=== PATIENT | female | born 1945 | race Caucasian/White ===

== ENCOUNTER 2020-03-02 13:40 | Outpatient (CLI) | payer MEDICARE, SELFPAY ==
--- NOTE | 2020-03-02 13:58 | MM_ITS ---
WS: [id number] SCREENING DIGITAL MAMMOGRAM WITH CAD HISTORY: SCREEN COMPARISON: 11/19/2007 Bilateral CC and MLO views submitted. Computer aided detection analyzed. Breast composition: There are scattered areas of fibroglandular density. No suspicious masses, microc alcifications or architectural distortion. Benign calcifications in each breast. Stable lymph node up per outer quadrant RIGHT breast. MM/[place] [id number] IMPRESSION: BI-RADS: 2-Benign FOLLOW UP: 1 Year Follow-up
--- NOTE | 2020-03-02 14:43 | XR_ITS ---
WS: [id number] SCREENING DEXA SCAN [employer] CLINICAL INFORMATION: POSTMENOPAUSAL COMPARISON: None. FINDINGS: The L1-L4 bone mineral density measures 1.446 g/cm2. This corresponds to a T score score of 2.2 and Z score of 3.6. Left femoral neck bone mineral density measures 0.819 g/cm2. This corresponds to a T score of -1.5 an d Z score of 0.1. Right femoral neck bone mineral density measures 0.837 g/cm2. This corresponds to a T score -1.4of an d Z score of 0.2. Mean femoral neck bone mineral density measures 0.828 g/cm2. This corresponds to a T score of -1.4 an d Z score of 0.1. XR/XR DEXA axial skeleton* [id number] IMPRESSION: Osteopenia in the femoral necks. Normal bone mineralization lumbar spine, altho ugh values are likely elevated due to endplate sclerosis Patient's FRAX calculated 10 year probability for major osteoporotic fracture i s 24.5 % and osteoporotic hip fracture is 14.7%.
== END 2020-03-02 13:41 | disposition home or self-care (01) ==
LOC: RADSHAW 13:54
PROVIDERS: PCP Family Medicine; Visit Provider Family Medicine
DX: Z12.31 Encounter for screening mammogram for malignant neoplasm of breast (principal); Z78.0 Asymptomatic menopausal state
CPT/HCPCS: 77067; 77080

== ENCOUNTER 2021-12-20 08:03 | Outpatient (CLI) | payer MEDICARE, SELFPAY ==
--- NOTE | 2021-12-20 08:20 | XRR_ITS ---
PROCEDURE INFORMATION: Exam: XR Chest Exam date and time: 12/20/2021 8:21 AM Age: 76 years old Clinical indication: Dyspnea; Prior surgery; Surgery type: Hysterotomy; Patient HX: SOB, cough, spitting up clear liquid; Additional info: Dyspnea/fatigue/gout/htn TECHNIQUE: Imaging protocol: Radiologic exam of the chest. Views: 2 views. COMPARISON: CT abdomen pelvis w con* [id number] 06/01/2016 1:55 PM FINDINGS: Lungs: Unremarkable. No consolidation. Pleural spaces: Unremarkable. No pleural effusion. No pneumothorax. Heart/Mediastinum: Upper normal or borderline cardiac enlargement. Vasculature: Calcified thoracic aorta. Bones/joints: Degenerative changes of thoracic spine. Osteopenia. Other findings: Likely few scattered calcified granulomata. XR/XR chest 2V* [id number] IMPRESSION: No acute cardiopulmonary process.
== END 2021-12-20 08:04 | disposition home or self-care (01) ==
PROVIDERS: PCP Family Medicine; Visit Provider Family Medicine
DX: R06.02 Shortness of breath (principal); R53.83 Other fatigue; M10.9 Gout, unspecified; E78.5 Hyperlipidemia, unspecified; I10 Essential (primary) hypertension
CPT/HCPCS: 71046; 80053; 80061; 83880; 84443; 85025; 85651; 86141

== ENCOUNTER → 2022-07-04 10:37 | Outpatient (BNVA) | payer MEDICARE, SELFPAY | PROVIDERS: PCP Family Medicine; Visit Provider Family Medicine | DX: R73.9 Hyperglycemia, unspecified (principal); F32.A Depression, unspecified; R53.83 Other fatigue | CPT/HCPCS: 80048; 83036; 85025 ==

== ENCOUNTER 2023-02-07 08:49 | Outpatient (CLI) | payer MEDICARE, SELFPAY ==
--- NOTE | 2023-02-07 09:17 | XR_ITS ---
WS: [id number] EXAMINATION: XR shoulder LT min 2V* [id number] REASON FOR EXAM: left shoulder pain COMPARISON: None available. ORDER DATE: 02/07/2023 9:40 AM TECHNIQUE: 3 views of the left shoulder were obtained. X-RAY FINDINGS: No fractures or dislocations. Normal motion of the shoulder with internal/external rotation. Moderate glenohumeral and acromioclavicular joint degenerative changes. Acromioclavicular joint appears unremarkable. Limited visualization of the adjacent hemithorax is unremarkable. IMPRESSION: No fractures or dislocations of the left shoulder with moderate osteoarthritic changes..
[2023-02-07 09:59] LABS: Basophils # 0.1 10^3/uL (0.0-0.1); Basophils % 0.9 %; Eosinophils # 0.3 10^3/uL (0.0-0.8); Eosinophils % 2.5 %; Hematocrit 37.7 % (36-47); Lymphocytes # 3.9 10^3/uL (0.8-4.8); Lymphocytes % 35.9 %; Mean Corpuscular HGB Conc 32.4 g/dL (30-55); Mean Corpuscular Hemoglobin 31.9 pg (27-33); Mean Corpuscular Volume 98.4 fl (85-98); Mean Platelet Volume 10.6 fL (7.4-10.4); Monocytes # 0.6 10^3/uL (0.2-0.9); Monocytes % 5.7 %; Neutrophils % 54.5 %; Nucleated Red Blood Cells % 0 %; Platelet Count 245 10^3/cmm (157-399); Red Blood Count 3.83 10^6/uL (3.85-5.65); Red Cell Distribution Width 13.2 % (12.1-15.1); White Blood Count 10.82 10^3/uL (3.29-11.43)
[2023-02-07 10:22] LABS: Alanine Aminotransferase 12 U/L (0-33); Albumin Level 4.1 g/dL (3.5-5.2); Alkaline Phosphatase 102 U/L (35-105); Anion Gap 15.4 (5-19); Aspartate Amino Transferase 16 U/L (0-32); Blood Urea Nitrogen 21 mg/dL (8-23); Calcium 9.7 mg/dL (8.5-10.5); Carbon Dioxide 25 mmol/L (22-29); Chloride 103 mmol/L (98-107); Chol HDL Ratio 4.04 mg/dL (0.0-4.40); Cholesterol 186 mg/dL (0-200); Globulin 3.4 g/dL (1.3-4.6); Glucose 128 mg/dL (65-115); HDL Cholesterol 46 mg/dL (60-100); LDL Cholesterol Calculated 110 mg/dL (50-129); LDL HDL Ratio 2.39 RATIO (0.00-3.22); Osmolality Calculated 295 mOsm/kg (285-295); Potassium 3.4 mmol/L (3.5-5.1); Sodium 140 mmol/L (136-145); Total Bilirubin 0.3 mg/dL (0.15-1.2); Total Protein 7.5 g/dL (6.6-8.7); Triglycerides 150 mg/dL (0-150)
== END 2023-02-07 08:50 | disposition home or self-care (01) ==
PROVIDERS: PCP Family Medicine; Visit Provider Family Medicine
DX: R73.9 Hyperglycemia, unspecified; I10 Essential (primary) hypertension; R53.83 Other fatigue; M19.012 Primary osteoarthritis, left shoulder
CPT/HCPCS: 36415; 73030; 80053; 80061; 85025

== ENCOUNTER → 2023-06-07 13:15 | Outpatient (BNVA) | payer MEDICARE, SELFPAY | PROVIDERS: PCP Family Medicine; Visit Provider Family Medicine | DX: R53.83 Other fatigue (principal) | CPT/HCPCS: 80048; 85025 ==

== ENCOUNTER 2023-07-03 12:51 | Observation (INO) | payer MEDICARE, SELFPAY ==
--- NOTE | 2023-06-29 13:35 | P.ANESASSM_ITS ---
Pre-Anesthetic Assessment Height/Weight: Height 1.57 m Operation Date: 07/03/23 09:30 Proposed Procedures p Anterior colporrhaphy ,augmented with allograft,posterior colporrhaphy 05855, sling 02210, Sacrospinous fixation 57619,N81.10,,N81.6,N99.3(Not Applicable) - MD janina Lamar Posterior Repair(Not Applicable) - MD janina Lamar Sling(Not Applicable) - Jonathan Aguila MD s Sacrospinous Ligament Suspension Sacrospinous Fixation(Not Applicable) - Jonathan Aguila MD Social No alcohol and No tobacco Exam alert, oriented x 3, clear to auscultation bilaterally and regular rate & rhythm Airway Submandibular: Other (limited/receeding) Cervical ROM: within normal limits Mallampati: Class III Pulmonary Sleep Apnea Metabolic Diabetes Mellitus Musc/skel Osteoarthritis/DJD and Weakness Neuropsych Depression Anesthetic Plan ASA status: 3 Anesthesia: General Medications/Allergies Home Medications Medication Instructions Recorded Confirmed Last Taken Type allopurinol 300 mg tablet 300 mg PO DAILY 06/29/23 06/29/23 06/28/23 History amlodipine 5 mg tablet 5 mg PO DAILY 06/29/23 06/29/23 06/28/23 History cartilage 40 mg-collagen II 10 1 tab PO DAILY 06/29/23 06/29/23 06/28/23 History mg-boron 5 mg-hyaluronate 3.3 mg tablet ([employer]) cholecalciferol (vitamin D3) 25 25 mcg PO DAILY 06/29/23 06/29/23 06/28/23 History mcg (1,000 unit) tablet (Vitamin D3) docusate sodium 100 mg tablet 100 mg PO DAILY 06/29/23 06/29/23 06/28/23 History (Stool Softener) lisinopril 20 1 tab PO DAILY 06/29/23 06/29/23 06/28/23 History mg-hydrochlorothiazide 25 mg tablet magnesium chloride 64 mg 64 mg PO DAILY 06/29/23 06/29/23 06/28/23 History tablet,extended release metoprolol succinate 50 mg 50 mg PO DAILY 06/29/23 06/29/23 06/28/23 History tablet,extended release 24 hr sour mcfadden extract 1,000 mg 2,400 mg PO DAILY 06/29/23 06/29/2324 History capsule (Tart Mcfadden Extract) Allergies Allergy/AdvReac Type Severity Reaction Status Date / Time codeine AdvReac Intermediate Unknown Verified 06/29/23 07:47 diazepam [From Valium] AdvReac Intermediate Unknown Verified 06/29/23 07:47 [facility] Anesthesia Medical History Osteoarthritis GIFTY on CPAP Depression Data Anesthesia Cardiac Studies: No Data to Display
[2023-07-03] VITALS (23 sets, daily range): BP systolic 122–219; BP diastolic 42–100; PULSE 64–90; RESP 16–22; TEMP 36.1–37.2; O2SAT 93–100; BMI 29.2
[2023-07-03] MEDS: scopolamine 1.5 Patch 1 PATCH TRANSDERMA (08:45)
[2023-07-03] MEDS: sodium chloride 0.9% 1,000 ML 30 ML IV (08:46)
[2023-07-03] MEDS: enoxaparin 30 mg/0.3 mL Syringe SUBCUT (08:46)
--- NOTE | 2023-07-03 08:49 | PC.NURSE ---
pt unable to void for urine orders.
[2023-07-03] MEDS: metoprolol tartrate 1 mg/1 mL SDV 5 mL 5 MG IVP (09:02)
[2023-07-03 09:23] LABS: Basophils # 0.1 10^3/uL (0.0-0.1); Eosinophils # 0.3 10^3/uL (0.0-0.8); Eosinophils % 2.8 %; Hematocrit 38.6 % (36-47); Lymphocytes # 4.1 10^3/uL (0.8-4.8); Lymphocytes % 39.1 %; Mean Corpuscular HGB Conc 31.3 g/dL (30-55); Mean Corpuscular Hemoglobin 30.7 pg (27-33); Mean Platelet Volume 10.8 fL (7.4-10.4); Monocytes # 0.9 10^3/uL (0.2-0.9); Monocytes % 8.7 %; Neutrophils # 5.05 10^3/uL (1.8-7.7); Neutrophils % 48.1 %; Nucleated Red Blood Cells % 0 %; Platelet Count 259 10^3/cmm (157-399); Red Blood Count 3.94 10^6/uL (3.85-5.65); White Blood Count 10.47 10^3/uL (3.29-11.43)
[2023-07-03 09:33] LABS: Alanine Aminotransferase 15 U/L (0-33); Albumin Level 4.2 g/dL (3.5-5.2); Alkaline Phosphatase 115 U/L (35-105); Anion Gap 13.1 (5-19); Aspartate Amino Transferase 17 U/L (0-32); Blood Urea Nitrogen 12 mg/dL (8-23); Calcium 10.5 mg/dL (8.5-10.5); Carbon Dioxide 29 mmol/L (22-29); Chloride 103 mmol/L (98-107); Creatinine Clr Calc Pharmacy 52.3193; Globulin 3.8 g/dL (1.3-4.6); Glucose 114 mg/dL (65-115); Osmolality Calculated 293 mOsm/kg (285-295); Potassium 4.1 mmol/L (3.5-5.1); Sodium 141 mmol/L (136-145); Total Bilirubin 0.4 mg/dL (0.15-1.2)
--- NOTE | 2023-07-03 10:20 | P.ANESUD_ITS ---
Pre-Anesthetic Update Pre-Anesthetic Assessment: Date of Surgery/Procedure: 07/03/23 Preop Lauren gnosis: Cystocele, rectocele, urinary incontinence Proposed Procedure: Operation Date: 07/03/23 09:45 Proposed Procedures p Anterior colporrhaphy ,augmented with allograft,posterior colporrhaphy 04036, sling 48246, Sacrospinous fixation 63902,N81.10,,N81.6,N99.3(Not Applicable) - Jonathan Aguila MD s Posterior Repair(Not Applicable) - Jonathan Aguila MD s Sling(Not Applicable) - Jonathan Aguila MD s Sacrospinous Ligament Suspension Sacrospinous Fixation(Not Applicable) - Jonathan Aguila MD Any changes to Pre-Anesthetic Assessment?: No Last Intake: Intake Last Liquid Date 07/02/23 Last Liquid Time 20:00 Last Solid Date 07/02/23 Last Solid Time 17:00 Labs Last 48hrs: Short CBC 07/03/23 Range/Units 08:40 WBC 10.47 (3.29-11.43) 10^ 3/uL Hgb 12.10 (11.27-16.99) g/ dL Hct 38.6 (36-47) % MCV 98.0 (85-98) fl Plt Count 259 (157-399) 10^3/c mm Neut % (Auto) 48.1 % Neut # (Auto) 5.05 (1.8-7.7) 10^3/u L BMP 07/03/23 08:40 Sodium 141 Potassium 4.1 Chloride 103 Carbon Dioxide 29 BUN 12 Creatinine 0.8 Glucose 114 Calcium 10.5 Liver Function 07/03/23 Range/Units 08:40 Total Bilirubin 0.4 (0.15-1.2) mg/dL AST 17 (0-32) U/L ALT 15 (0-33) U/L Alkaline Phosphata se 115 H (35-105) U/L Albumin 4.2 (3.5-5.2) g/dL Vitals: Temperature 98.9 F 07/03/23 08:27 Temperature Source Temporal Artery S can 07/03/23 08:27 Pulse Rate 70 07/03/23 08:27 Pulse Rhythm Regular 07/03/23 08:29 Pulse Strength 3+ Normal 07/03/23 08:29 Respiratory Rate 16 07/03/23 08:27 Blood Pressure 219/100 07/03/23 09:05 Blood Pressure Ifeoma n 139 07/03/23 09:05 Pulse Oximetry 99 07/03/23 08:27 Oxygen Delivery Me thod Room Air 07/03/23 08:29 Exam: Pre-Anes Outpt Exam: alert, oriented x 3, clear to auscultation bilater ally and regular rate & rhythm Cardiac Studies: No Data to Display
--- NOTE | 2023-07-03 10:28 | W.PM.OPSUD ---
Surgery/Procedure H&P Update DATE OF PROCEDURE: July 03, 2023 DATE H&P PERFORMED: 06/25/23 H&P UPDATE INFORMATION: I have reviewed H&P completed within last 30 days, I have examined patient prior to procedure and No changes to prior documentation PREOP DIAGNOSIS: Cystocele, rectocele, urinary incontinence PLANNED PROCEDURE: Operation Date: 07/03/23 09:45 Proposed Procedures p Anterior colporrhaphy ,augmented with allograft,posterior colporrhaphy 38684, sling 51066, Sacrospinous fixation 42376,N81.10,,N81.6,N99.3(Not Applicable) - Jonathan Aguila MD s Posterior Repair(Not Applicable) - Jonathan Aguila MD s Sling(Not Applicable) - Jonathan Aguila MD s Sacrospinous Ligament Suspension Sacrospinous Fixation(Not Applicable) - Jonathan Aguila MD
[2023-07-03] MEDS: ceFAZolin 2,000 MG in sodium chloride 0.9% (plus) 50 ML 100 MG IV (10:41)
[2023-07-03] MEDS: lidocaine-epi 2% 20 mL INJ INJECTION (11:25)
--- NOTE | 2023-07-03 13:09 | P.OP_ITS ---
Operative Report Date of procedure: July 03, 2023 Pre-op diagnosis: Cystocele Rectocele Urinary incontinence Post-op diagnosis: same Procedure done: Anterior colporrhaphy augmented with allograft Single incision mid urethral sling Posterior colporrhaphy Sacrospinous fixation Cystoscopy Implants: Coloplast Altis sling. Anchorsure sacrospinous fixation system. Surgeon: Jonathan Aguila MD Estimated blood loss (mL): 100 IV fluids (mL): 800 Urine output (mL): 300 Complications: None Procedure: After obtaining informed consent, the patient was taken to the operating room and placed in the supine position, given general anesthesia, and prepped and draped in sterile fashion. The abdomen, vulva and vagina were prepped and draped in a sterile manner. A time out procedure was performed. The anterior vaginal mucosa beneath the midurethra was infiltrated with 0.5% Marcaine with epinephrine. A vertical midline incision was made beneath the midurethra, nearly 1.5 cm length. Careful submucosal dissection was performed bilaterally up to the interior portion of the inferior pubic ramus. The insertion of adductor longus tendon on the patient?s pubic ramus was identified as reference land jackie. Palpated the notch along the internal edge of ischiopubic ramus where the adductor longus tendon and the inferior pubic ramus meet. The Altis single incision sling (SIS) was selected. Then the needle of the SIS inserted aiming at the location of this notch. One of the integrated self-fixating tips place onto the needle by sliding it over the end of the needle. The needle/sling assembly was inserted toward the location of identified reference notch making sure that the flat of the handle is perpendicular to the desired path. The needle was tracked along the posterior surface of the ischiopubic ramus until the midline jackie on the mesh is approximately at the midline position under the urethra. The needle was removed and the same was repeated on the contralateral side until the appropriate sling tension under the urethra was achieved ensuring that the mesh lays flat. The needle was removed and vaginal incision was closed in a running interlocking fashion with 2-0 Vicryl. The vaginal mucosa was then injected in the midline with normal saline. The vaginal mucosa was scored in the midline with the Bovie approximately 1 cm medial to the urethral meatus to 1 cm distal to the vaginal cuff. This vaginal mucosa was then undermined and then incised in the midline with the Metzenbaum scissors. The lateral aspects of the vaginal mucosa were then grasped with the Allis clamps and the vaginal mucosa was then dissected off the underlying fascia with the Metzenbaum scissors. Again, there was noted to be quite a bit of oozing at the incision, which was controlled with cautery. After adequate dissection was performed, bilaterally. An Coloplast dermis allograft modified at time of application to fit spacea, 4 x 3 cm piece . The Coloplast allograft placed in front of cystocele ready to be implanted facing the vagina mucosa. Suture is placed at distal end of graft and placed towards vaginal cuff. Final suture is placed on proximal portion of the graft to complete the placement overlying the bladder. Then Interrupted vertical mattress sutures of 0 Vicryl were used to elevate the cystocele superiorly. The excessive vaginal mucosa was then trimmed with the Metzenbaum scissors and the vaginal mucosa was then reapproximated in the running interlocking fashion with 2-0 Vicryl. The posterior vaginal mucosa is opened in the routine fashion as described previously in Posterior Repair. A finger is inserted through the incision in the posterior vaginal mucosa, dissecting out the rectovaginal space (RVS). The right rectal pillar (RRP) is identified. The rectal pillar can be bluntly perforated either with the [finger or with the tip of a long Grace clamp]. A [Connie- Kike] retractor is used for exposing the rectovaginal space in order to enter the pararectal space with retraction of the cardinal ligament, vagina, and rectum. Displacing the rectum to the left and the cardinal ligament and ureter anteriorly. A sponge dissector is used to bluntly dissect the sacrospinous ligament removing areolar tissue. The ischial spine was palpated directly, and a area approximately 2 cm medial to the spine was selected for insertion of the Anchorsure transvaginal sacrospinous fixation system. One end of the suture of Anchoresure system inserted through the sacrospinous ligament is placed through the muscular layer of the vagina. In a similar manner, the second suture is placed. The opposite end of the suture in the sacrospinous ligament is left free and held on a small hemostat. Then traction on this suture will draw the vaginal vault directly to the ligament, where a square knot affixes it to the sacrospinous ligament. After the yong stich is tied the second safety stich is tied. Then the colporrhaphy/vaginal repair is carried out in routine fashion. A posterior repair was performed next. An incision was made across the introitus. Metzenbaum scissors were used to tunnel beneath posterior vaginal mucosa until the apex of the rectocele bulge was reached. At this point, the rectum was from the posterior vaginal mucosa using sharp and blunt dissection, and the rectal bulge imbricated in the midline with interrupted sutures of 2-0 vicryl suture. Levator ani muscles on either side were approximated in the midline with interrupted 0 Vicryl sutures. Excess posterior vaginal mucosa was excised, and the vaginal episiotomy was repaired by approximating the posterior vaginal mucosa with a suture of Vicryl #0. Then the Keith catheter was removed and cystoscope was inserted. The bladder was filled with sterile water. Complete evaluation of the bladder mucosa was performed noting no lacerations, dimpling, tears, bleeding of the mucosa or muscular layers. Both ureteral orifices were identified. Prompt excretion of urine from both ureteral orifices was noted. Cystoscope was withdrawn. The Keith catheter was replaced. Excellent hemostasis was obtained. A vaginal pack is placed overnight as postoperative support for the vaginal tissues after graft placement and closure of vaginal incisions. Sponge, lap, needle, and instrument counts were correct times three. The patient was taken to the recovery room, awake and in stable condition.
[2023-07-03] MEDS: estrogens Conjugated Cream 30 gm 1 APPLIC VAGINAL (13:18)
[2023-07-03] MEDS: fentaNYL 50 mcg/mL INJ 2mL IVP (13:26)
--- NOTE | 2023-07-03 14:00 | ANE.PACU2 ---
Inpatient post-anesthesia follow up: Airway intact: Yes Vital signs: Temperature 97.0 F Pulse Rate 64 Respiratory Rate 18 Blood Pressure 162/52 Pulse Oximetry 94 Oxygen Delivery Me thod Room Air Oxygen Flow Rate 2 Fraction of Inspir ed Oxygen Hydration adequate: Yes Nausea and vomiting: No Pain level: 1 Mental status: Baseline
[2023-07-03] MEDS: ketorolac 30 mg/mL INJ IVP ×2 (15:05→20:34)
[2023-07-03] MEDS: dextrose 5%-lactated ringers 1,000 ML 125 ML IV ×2 (15:05→23:14)
[2023-07-03] MEDS: HYDROcodone-acetaminophen 5-325 mg Tablet PO (15:05)
--- NOTE | 2023-07-03 17:12 | PC.NURSE ---
per Dr. Aguila pts vaginal packing was removed at this time.
[2023-07-03] MEDS: docusate sodium 100 mg Capsule PO (18:59)
[2023-07-04] MEDS: sodium chloride 0.9% 500 ML IV (00:09)
[2023-07-04] MEDS: ketorolac 30 mg/mL INJ IVP (02:35)
[2023-07-04 05:07] LABS: Hematocrit 31.4 % (36-47); Mean Corpuscular HGB Conc 31.8 g/dL (30-55); Mean Corpuscular Hemoglobin 30.9 pg (27-33); Mean Corpuscular Volume 96.9 fl (85-98); Mean Platelet Volume 10.1 fL (7.4-10.4); Platelet Count 222 10^3/cmm (157-399); Red Blood Count 3.24 10^6/uL (3.85-5.65); Red Cell Distribution Width 12.7 % (12.1-15.1); White Blood Count 16.73 10^3/uL (3.29-11.43)
[2023-07-04 06:05] VITALS: BP 126/72; PULSE 67; RESP 16; TEMP 36.4; O2SAT 96
[2023-07-04] MEDS: mineral oil 30 mL UDC PO (10:08)
[2023-07-04 10:20] VITALS: BP 130/79; PULSE 69; RESP 16; TEMP 36.7
--- NOTE | 2023-07-04 12:07 | P.DS_ITS ---
Discharge Providers CORE MANAGER Date of Admission: 07/03/23 12:51 Date of Discharge: 07/04/23 Attending Provider at Admission: Jonathan Aguila MD Attending Provider at Discharge: Jonathan Aguila MD Primary CORE MANAGER: Jonathan Aguila MD Primary Care Provider: Sly Perry MD Reason for Visit Reason for Visit: N81.10, N81.6, N99.3 Hospital Course Hospital Course Mrs. Yeh 78-year-old female with a history of cystocele stage III, rectocele and stress incontinence. Admitted for planned anterior colporrhaphy augmented with allograft, single incision mid urethral sling, posterior colporrhaphy and sacrospinous fixation. The procedures were performed without complication. Overnight observation uneventful. PVR within normal limits. Ambulating without difficulty. Tolerating diet well. Patient was counseled regarding pelvic rest for 6 weeks (no sex, no tampons, no vaginal douches). Return to the emergency room if any fever, increased bleeding or pain. She was also counseled regarding weight lifting limitations and limiting strenuous activities. Physical Exam Narrative: GA: Alert and oriented ?3. HEENT: WNL. Heart: Regular rate and rhythm. Lungs: Clear to auscultation bilaterally. Abdomen: Bowel sounds present, nontender. 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 Extremities: No edema, no cyanosis, no calves pain. Urinary Catheter Management: Keith: Cath Placed During This Visit: yes, but has since been removed by the nurse Reason for Continuing Indwelling Catheter: Decision to DC Catheter Urinary Catheter Date of Insertion: 07/03/23 Urinary Catheter Time of Insertion: 11:09 Date Urinary Catheter Removed: 07/04/23 Time Urinary Catheter Discontinued: 05:54 History History History 2 Term 2 0 Miscarriages/Ectopic 0 Living Children 1 Discharge Data Studies Completed and Pending Laboratory Results WBC 16.73 10^3/uL (3.29-11.43) H 07/04/23 04:52 RBC 3.24 10^6/uL (3.85-5.65) L 07/04/23 04:52 Hgb 10.00 g/dL (11.27-16.99) L 07/04/23 04:52 Hct 31.4 % (36-47) L 07/04/23 04:52 MCV 96.9 fl (85-98) 07/04/23 04:52 MCH 30.9 pg (27-33) 07/04/23 04:52 MCHC 31.8 g/dL (30-55) 07/04/23 04:52 RDW 12.7 % (12.1-15.1) 07/04/23 04:52 Plt Count 222 10^3/cmm (157-399) 07/04/23 04:52 MPV 10.1 fL (7.4-10.4) 07/04/23 04:52 Neut % (Auto) 48.1 % 07/03/23 08:40 Lymph % (Auto) 39.1 % 07/03/23 08:40 Mariposa % (Auto) 8.7 % 07/03/23 08:40 Eos % (Auto) 2.8 % 07/03/23 08:40 Baso % (Auto) 1.0 % 07/03/23 08:40 Neut # (Auto) 5.05 10^3/uL (1.8-7.7) 07/03/23 08:40 Lymph # (Auto) 4.1 10^3/uL (0.8-4.8) 07/03/23 08:40 Mariposa # (Auto) 0.9 10^3/uL (0.2-0.9) 07/03/23 08:40 Eos # (Auto) 0.3 10^3/uL (0.0-0.8) 07/03/23 08:40 Baso # (Auto) 0.1 10^3/uL (0.0-0.1) 07/03/23 08:40 Nucleated RBC % (auto) 0 % 07/03/23 08:40 Nucleated RBCs # 0.0 /100WBC 07/03/23 08:40 Sodium 141 mmol/L (136-145) 07/03/23 08:40 Potassium 4.1 mmol/L (3.5-5.1) 07/03/23 08:40 Chloride 103 mmol/L (98-107) 07/03/23 08:40 Carbon Dioxide 29 mmol/L (22-29) 07/03/23 08:40 Anion Gap 13.1 (5-19) 07/03/23 08:40 BUN 12 mg/dL (8-23) 07/03/23 08:40 Creatinine 0.8 mg/dL (0.5-0.9) 07/03/23 08:40 GFR Calculation Not Reportable 07/03/23 08:40 Glucose 114 mg/dL (65-115) 07/03/23 08:40 Calculated Osmolality 293 mOsm/kg (285-295) 07/03/23 08:40 Calcium 10.5 mg/dL (8.5-10.5) 07/03/23 08:40 Total Bilirubin 0.4 mg/dL (0.15-1.2) 07/03/23 08:40 AST 17 U/L (0-32) 07/03/23 08:40 ALT 15 U/L (0-33) 07/03/23 08:40 Alkaline Phosphatase 115 U/L (35-105) H 07/03/23 08:40 Total Protein 8.0 g/dL (6.6-8.7) 07/03/23 08:40 Albumin 4.2 g/dL (3.5-5.2) 07/03/23 08:40 Globulin 3.8 g/dL (1.3-4.6) 07/03/23 08:40 Blood Type O Positive 07/03/23 08:40 Rho(D) Type Rh positive 07/03/23 08:40 Antibody Screen Negative 07/03/23 08:40 Vitals Last Vital Signs Temp 97.6 F 07/04/23 06:05 Pulse 67 07/04/23 06:05 Resp 16 07/04/23 06:05 BP 126/72 07/04/23 06:05 Pulse Ox 96 07/04/23 06:05 O2 Del Method Room Air 07/04/23 06:05 O2 Flow Rate 2 07/03/23 13:35 Results Labs OB ([facility]): Blood Type O Positive 07/03/23 Antibody Screen Negative 07/03/23 Hct 31.4 % (36-47) L 07/04/23 Hgb 10.00 g/dL (11.27-16.99) L 07/04/23 Rho(D) Type Rh positive 07/03/23 Plt Count 222 10^3/cmm (157-399) 07/04/23 TSH 1.13 uIU/mL (0.27-4.20) 12/20/21 Hemoglobin A1c 5.9 % (4.0-6.0) 07/04/22 Discharge Plan Discharge Patient Disposition: Home Condition: Stable Prescriptions: New hydrocodone-acetaminophen 5-325 mg tablet 1 tab PO Q4H PRN (Reason: pain) Qty: 20 0RF acetaminophen 325 mg capsule 325 mg PO Q4H PRN (Reason: fever or pain) Qty: 60 0RF ibuprofen 800 mg tablet 800 mg PO TID PRN (Reason: pain) Qty: 60 0RF mineral oil Oil 15 ml PO DAILY Qty: 473 0RF Continued Slow-Mag 64 mg Tablet Extended Release 64 mg PO DAILY Stool Softener 100 mg Tablet 100 mg PO DAILY cholecalciferol (vitamin D3) [Vitamin D3] 25 mcg (1,000 unit) Tablet 25 mcg PO DAILY Tart Mcfadden Extract 1,000 mg Capsule 2,400 mg PO DAILY [facility] 40-10-5-3.3 mg Tablet 1 tab PO DAILY metoprolol succinate 50 mg tablet extended release 24 hr 50 mg PO DAILY Rx Instructions: Take 1 tablet by mouth once daily amlodipine 5 mg tablet 5 mg PO DAILY Rx Instructions: TAKE 1 TABLET BY MOUTH ONCE DAILY NEEDED lisinopril-hydrochlorothiazide 20-25 mg tablet 1 tab PO DAILY Rx Instructions: Take 1 tablet by mouth once daily allopurinol 300 mg tablet 300 mg PO DAILY Rx Instructions: TAKE 1 TABLET BY MOUTH ONCE DAILY FOR GOUT Discharge Orders: Discharge Order (Routine); Ordered 07/04/23 Ordered By: Jonathan Aguila Referrals: Jonathan Aguila MD [Physician] - (Post-Op visits: 2 week: 07/17/23 @ 0930 am 6 week: 08/13/23 @ 1:30pm) Discharge Diet: Soft Mechanical Discharge Activity: Limit activity as instructed Patient Instructions: Cystocele (GEN), Bladder Sling for Women (GEN), Anterior Vaginal Repair (GEN), Posterior Vaginal Repair (GEN), OB Discharge Report, OB Food/Drug Interaction Guide, Opioid Safety Activity Restrictions/Additional Instructions: 1. Please call [facility] on next working day to make your post-operative appointment in 2 weeks. 2. Please stay home until you come back to the clinic on first post- hospatilization check up. 3. Please follow instructions on your medications CAREFULLY. 4. If you have abdominal incision, do not cover it unless dressing is necessary because of drainage. OK to shower, but avoid bath. Leave steri-strips until they fall off. If they are still on one week after surgery, you may remove them. 5. If you had vaginal surgery or vaginal repair, Dr. Aguila may instruct you to take SITZ bath. 6. Yellow, blood tinged odorous vaginal discharge is usually normal after hysterectomy or vaginal surgeries. 7. No SEXUAL INTERCOURSE, tampons, or douches until you are completely released from the post-operative care. 8. Avoid constipation by eating right and maybe using some Metamucil or Milk of Magnesia. 9. All prescription refills are given during the working hours. Please do no wait till it runs out. Call the clinic at [phone] before your medication runs out. The clinic will get in touch with your doctor to prescribe medications if necessary. 10. Please remain within 40 mile radius from our hospital because emergencies do happen now and then during the post-operative period. 11. If you have stairs at home, take one step at a time slowly and minimize the number of trips. It helps to stay in one floor for the next few days. No lifting except what you can lift by one hand until you are released from the post-operative care. 12. Driving is discouraged until you are well healed. It may be 3-4 weeks before you feel strong enough to drive. You should be able to turn and look through the rear window without pain and you should be able to push the brake pedal very hard without pain before you drive. No fast rules, but SAFETY should be your primary concern. DO NOT drive if you are on sedating medications such as narcotics. 13. Call the clinic (during working hours) to make urgent appointment or go to the Emergency room, if any of the following occurs: i. Vaginal bleeding becomes heavy, more than a period. ii. Incision becomes red and sore, or drains pus. iii. Your TEMPERATURE is over 100.4F or you have chill. iv. IV site becomes red and swollen (a little ``knot?? is usually OK) v. Persistent nausea and vomiting vi. Persistent constipation or diarrhea vii. Rash or allergic reaction to medications. Discharge Attestations CORE MANAGER Time Spent in Discharge Care*: greater than 30 min Coding Level of Care Code Acute Code for Chg Fwd
[2023-07-04 12:40] VITALS: BP 122/62; PULSE 69; RESP 16; TEMP 36.7
== END 2023-07-04 12:40 | disposition home or self-care (01) ==
LOC: OBGYN 12:52
PROVIDERS: Admitting Provider Obstetrics & Gynecology; PCP Family Medicine; Visit Provider Obstetrics & Gynecology
PROC: 0JQC0ZZ Repair Pelvic Region Subcutaneous Tissue and Fascia, Open Approach (ICD-10-PCS; CPT 57240; principal; 2023-07-03 09:25)
PROC: (CPT 57250; 2023-07-03 09:25)
PROC: (CPT 57288; 2023-07-03 09:25)
PROC: (CPT 57282; 2023-07-03 09:25)
DX: N81.10 Cystocele, unspecified (principal); N81.6 Rectocele; R32 Unspecified urinary incontinence; E11.9 Type 2 diabetes mellitus without complications; M19.90 Unspecified osteoarthritis, unspecified site; G47.33 Obstructive sleep apnea (adult) (pediatric)
CPT/HCPCS: 57260; 57267; 57282; 36415; 51798; 80053; 85025; 85027; 86850; 86900; C1713; C1762; G0378; J0690; J1100; J1650; J1885; J2405; J2704; J3010; J3490; J7030; J7040; J7121

== ENCOUNTER → 2024-07-15 09:08 | Outpatient (BNVA) | payer MEDICARE, SELFPAY | PROVIDERS: PCP Family Medicine; Visit Provider Family Medicine | DX: R73.9 Hyperglycemia, unspecified (principal); I10 Essential (primary) hypertension; R53.83 Other fatigue; F32.A Depression, unspecified | CPT/HCPCS: 80053; 80061; 82607; 83036; 84443; 84550; 85025 ==

== ENCOUNTER → 2025-01-13 09:02 | Outpatient (BNVA) | payer MEDICARE, SELFPAY | PROVIDERS: PCP Family Medicine; Visit Provider Family Medicine | DX: I10 Essential (primary) hypertension (principal); R53.83 Other fatigue; F32.A Depression, unspecified | CPT/HCPCS: 80053; 82306; 82607; 83880; 84443; 84550; 85025; 86140 ==

== ENCOUNTER 2025-03-23 09:04 | Outpatient (CLI) | payer MEDICARE, SELFPAY ==
--- NOTE | 2025-03-23 09:15 | CT_ITS ---
WS: [id number] CT NECK TECHNIQUE: Contrast-enhanced CT of the neck with coronal and sagittal reformatted images. CLINICAL INFORMATION: NECK MASS COMPARISON: None. DLP: 170.[address] scans at [facility] use at least one of these dose optimization techniques: automated exposure control; mA and/or kV adjustment per patient size (includes targeted exams where dose is matched to clinical indication); or iterative reconstruction. FINDINGS: Palpable marker RIGHT lower neck in the area of concern. Normal underlying sternocleidomastoid. No evidence of pathologic mass or lesion in this location. Paranasal sinuses and mastoid air cells are well aerated. Mild mucosal thickening in the mastoid tips. Normal posterior nasopharynx. Normal parapharyngeal fat. Dental artifact degrades some images. No evidence of supraglottic or glottic mass. Normal subglottic airway. Tiny calcified LEFT thyroid nodule. Aortic calcification. Vascular calcification. Carotid bulb calcification. Moderate spondylitic changes cervical spine. Disc osteophyte complexes with mild central canal stenosis C4-C5 and C6-7. CT/CT neck w con* [id number] IMPRESSION: 1. No acute neck findings. 2. No suspicious lesions deep to the palpable marker RIGHT neck. Normal underl real sternocleidomastoid. 3. Normal salivary glands. 4. No evidence of supraglottic or glottic mass. 5. Paranasal sinuses and mastoid air cells are well aerated.
[2025-03-23] MEDS: iohexol 350 mg/mL 500 mL Btl (per mL) IV (09:23)
== END 2025-03-23 09:05 | disposition home or self-care (01) ==
LOC: RAD 09:09
PROVIDERS: PCP Family Medicine; Visit Provider Specialist
DX: R22.1 Localized swelling, mass and lump, neck (principal); J34.89 Other specified disorders of nose and nasal sinuses; I70.0 Atherosclerosis of aorta; I70.8 Atherosclerosis of other arteries; M47.812 Spondylosis without myelopathy or radiculopathy, cervical region; M48.02 Spinal stenosis, cervical region
CPT/HCPCS: 70491